=== PATIENT | female | born 1945 | race Caucasian/White ===

== ENCOUNTER 2017-02-08 11:19 | Inpatient (IN) ==
--- NOTE | 2017-02-08 15:44 | Internal Med History&Physical ---
Date of Encounter: 02/08/17 Time of Encounter: 15:42 Assessment and Plan (1) Acute exacerbation of chronic obstructive airways disease Current visit: No Status: Acute Start The patient IV steroids, [id number] nebulizer treatment. (2) Community acquired pneumonia Current visit: No Status: Acute Levofloxacin. Sputum culture. Qualifiers: Laterality: right Lung location: middle lobe of lung Qualified Code(s): J18.1 - Lobar pneumonia, unspecified organism (3) Chest heaviness Current visit: Yes Status: Acute EKG shows T wave inversion in the inferior leave unchanged from previous. Will trend troponin. She has no prior cardiac work-up Internal Medicine - H&P: HPI Chief complaint: sob History of present illness: Ms. Arizmendi is a 71 year old female with history of COPD on 2 L home oxygen, Charcot Mariana tooth, presents to the emergency room with the main component of shortness of breath. For the past 2 weeks patient has been getting progressively short of breath to the point where she short of breath with any minimal activity. She has been having nonproductive cough subjective fevers and chills. Additional sensors or facility from [place] because of concerns of some chest heaviness that she experienced Past Med Surg Social Fam HX - Past Medical History Medical history: arthritis, COPD, dementia, GERD, hypertension, other Psychiatric history: anxiety, depression, other - Social History Smoking Status: Light tobacco smoker Smokeless Tobacco Status: No Alcohol use: none Drug use: none - Family History Mother Living Status: Hx Family Cancer: Yes (Liver) Father Living Status: Hx Family Cancer: Yes (Lung) Internal Medicine - H&P: Meds Acetaminophen [Tylenol] 650 mg PO Q6HR PRN 04/22/16 [History] Carvedilol [Coreg] 25 mg PO BID 04/22/16 [History] HYDROcodone/Acet 5/325 mg [Peterson 5-325 mg] 1 tab PO Q6H PRN 04/22/16 [History] Iron Aspgly,Ps/C/B12/FA/Ca/Suc [Ferrex 150 Forte Plus Capsule] 1 each PO DAILY 04/22/16 [History] Loratadine [Allergy Relief] 10 mg PO DAILY 04/22/16 [History] Melatonin 3 mg PO DAILY 04/22/16 [History] Cholecalciferol (Vitamin D3) [Vitamin D] 2,000 unit PO DAILY 09/09/16 [History] Clopidogrel [Plavix] 75 mg PO DAILY 09/09/16 [History] Pantoprazole Sodium 40 mg PO DAILY 09/09/16 [History] Polyethylene Glycol 3350 [MiraLAX Powder Bulk 17.9 Oz] 17 gm PO DAILY 09/09/16 [ History] Amlodipine Besylate 2.5 mg PO DAILY 01/08/17 [History] Sennosides/Docusate Sodium [Senna Plus] 2 each PO BID 01/08/17 [History] Umeclidinium [place] [Incruse Ellipta] 62.5 mcg IH DAILY 01/08/17 [History] Albuterol Sulfate [Ventolin Hfa] 1 puff IH Q12H PRN 02/08/17 [History] Buspirone HCl [Buspar] 5 mg PO BID 02/08/17 [History] Fluticasone/Vilanterol [Breo Ellipta 100-25 Mcg INH] 1 each IH DAILY 02/08/17 [ History] Gabapentin [Neurontin] 100 mg PO TID 02/08/17 [History] Ipratropium/Albuterol Neb [Duoneb] 3 ml IH TID PRN 02/08/17 [History] Losartan Potassium [Cozaar] 100 mg PO DAILY 02/08/17 [History] Metoclopramide HCl 5 mg PO ACHS 02/08/17 [History] Oxygen 2 l NS CONT 02/08/17 [History] Potassium Chloride [K-Tab ER] 20 meq PO DAILY 02/08/17 [History] Promethazine [Phenergan] 25 mg PO Q6H PRN 02/08/17 [History] Sertraline [Zoloft] 50 mg PO DAILY 02/08/17 [History] Timolol Maleate 0.5% [Timolol Maleate 0.5%] 1 drop BOTH EYES BID 02/08/17 [ History] traZODone [TraZODone] 50 mg PO HS 02/08/17 [History] 3 Allergy/AdvReac Type Severity Reaction Status Date / Time nitroglycerin Allergy Hives Verified 02/08/17 10:09 vancomycin Allergy Rash Verified 01/08/17 20:21 All Systems PM: A 10-system review of systems was performed and is negative for pertinent findings except as documented above in the HPI. Review of systems: 10 point review of systems is negative except for HPI - Constitutional Vitals: Temp Pulse Resp BP Pulse Ox 98.2 F 90 17 117/70 99 02/08/17 15:08 02/08/17 15:08 02/08/17 15:08 02/08/17 15:08 02/08/17 15:08 Exam: Gen.: patient is alert oriented times 3 cardiac: normal S1 S2 no additional sounds or murmurs chest: dimminished air entry, expiratory wheeze, some bronchial breathing in left base abdomen soft nontender nondistended normal bowel sounds lower extremity no swelling. Neuro: no new focal deficits
[2017-02-08] MEDS ORDERED: NON-FORMULARY MEDICATION 1 EACH EACH (Oxygen [Oxygen] 2 L) NS SCH (15:45)
[2017-02-08] MEDS: Ipratropium/Albuterol Neb 3 ML IH SCH ×2 (17:05→21:58)
[2017-02-08] MEDS: MethylPREDNISolone 40 MG/ML VIAL IVP SCH (17:17)
[2017-02-08] MEDS ORDERED: *HR* Heparin 5,000 UNIT/ML VIAL IVP PRN ×2 (19:00)
[2017-02-08] MEDS ORDERED: Heparin 25,000 UNIT/500 ML D5W 25,000 UNIT/500 ML MLS IVC SCH (19:00)
[2017-02-08] MEDS ORDERED: *HR* Heparin 5,000 UNIT/ML VIAL IVP ONE (19:00)
[2017-02-08] MEDS: *HR* Morphine 2 MG/ML SYRINGE IVP PRN (21:36)
[2017-02-08 21:37] LABS: Basophils % 0.1 %; Hematocrit 30.5 % (35.3-44.9); Hemoglobin 9.4 g/dL (11.5-15.4); Immature Granulocytes % 0.6 % (0-4); Lymphocytes # 0.7 K/mcL (0.6-4.6); Mean Corpuscular HGB Conc 30.8 g/dL (31.6-35.5); Mean Corpuscular Hemoglobin 29.7 pg (28.0-33.3); Mean Corpuscular Volume 96.5 fL (83.0-100.0); Mean Platelet Volume 10.6 fL (9.4-12.4); Monocytes # 0.1 K/mcL (0.0-1.3); Monocytes % 1.6 %; Platelet Count 223 K/mcL (140-400); Red Blood Count 3.16 M/mcL (3.82-4.97); Red Cell Distribution Width 13.4 % (11.5-14.5); Segmented Neutrophils % 87.7 %
[2017-02-08] MEDS: Aspirin Enteric Coated 325 MG Tablet PO SCH (21:37)
[2017-02-08] MEDS: Gabapentin 100 MG CAPSULE PO SCH (21:37)
[2017-02-08 21:43] LABS: INR 1.1; Prothrombin Time 11.9 Seconds (9.4-12.1)
[2017-02-08 21:45] LABS: Activated Partial Thrombo Time 30.1 Seconds (26.0-36.0)
[2017-02-08 21:50] LABS: BUN/Creatinine Ratio 13 (6-26); Blood Urea Nitrogen 11 mg/dL (7-20); Calcium 8.9 mg/dL (8.6-10.8); Carbon Dioxide 28 mEq/L (19-29); Chloride 102 mEq/L (98-109); Glucose 152 mg/dL (70-99); Osmolality,Calculated 290 (280-300); Potassium 4.3 mEq/L (3.5-4.5); Sodium 139 mEq/L (136-145); eGFR For African Americans > 60 (> 60); eGFR For Non-African Americans > 60 (> 60)
[2017-02-08] MEDS ORDERED: *HR* Heparin 5,000 UNIT/ML VIAL SQ SCH (22:00)
[2017-02-09] MEDS: Melatonin 3 MG TABLET PO SCH ×2 (01:44→21:37)
[2017-02-09] MEDS: MethylPREDNISolone 40 MG/ML VIAL IVP SCH ×3 (01:44→16:10)
[2017-02-09] MEDS: *HR* Morphine 2 MG/ML SYRINGE IVP PRN (01:44)
[2017-02-09] MEDS: Ipratropium/Albuterol Neb 3 ML IH SCH ×4 (03:48→22:24)
[2017-02-09 03:53] LABS: Basophils % 0.1 %; Hematocrit 27.2 % (35.3-44.9); Hemoglobin 8.5 g/dL (11.5-15.4); Immature Granulocytes % 0.7 % (0-4); Lymphocytes % 14.2 %; Mean Corpuscular HGB Conc 31.3 g/dL (31.6-35.5); Mean Corpuscular Hemoglobin 29.7 pg (28.0-33.3); Mean Corpuscular Volume 95.1 fL (83.0-100.0); Mean Platelet Volume 10.6 fL (9.4-12.4); Monocytes # 0.2 K/mcL (0.0-1.3); Monocytes % 3.4 %; Neutrophils # 5.7 K/mcL (1.6-8.9); Platelet Count 189 K/mcL (140-400); Red Blood Count 2.86 M/mcL (3.82-4.97); Red Cell Distribution Width 13.2 % (11.5-14.5); Segmented Neutrophils % 81.6 %
[2017-02-09 04:02] LABS: BUN/Creatinine Ratio 16 (6-26); Blood Urea Nitrogen 11 mg/dL (7-20); Calcium 8.6 mg/dL (8.6-10.8); Carbon Dioxide 27 mEq/L (19-29); Chloride 101 mEq/L (98-109); Glucose 152 mg/dL (70-99); Magnesium 1.6 mg/dL (1.6-2.6); Osmolality,Calculated 286 (280-300); Sodium 137 mEq/L (136-145); eGFR For African Americans > 60 (> 60); eGFR For Non-African Americans > 60 (> 60)
[2017-02-09 04:31] LABS: Activated Partial Thrombo Time 166.9 Seconds (26.0-36.0)
[2017-02-09 04:40] LABS: Heparin anti-factor XA UFH 0.99 IU/mL (0.30-0.70)
[2017-02-09] MEDS: Gabapentin 100 MG CAPSULE PO SCH ×3 (08:25→21:38)
[2017-02-09] MEDS: Aspirin Enteric Coated 325 MG Tablet PO SCH (08:25)
[2017-02-09] MEDS: Levofloxacin 750 MG/150 ML 750 MG/150 ML BAG IVPB SCH (08:29)
[2017-02-09] MEDS ORDERED: (Fluticasone/Vilanterol [Breo Ellipta 100-25 Mcg Inh] IH SCH (09:00)
--- NOTE | 2017-02-09 09:51 | Internal Med Progress Note ---
Date of Encounter: 02/09/17 Time of Encounter: 09:49 - Assessment and plan (1) Acute exacerbation of chronic obstructive airways disease Current Visit: Yes Status: Acute Assessment and plan: Improving. Chest x-ray shows small right-sided infiltrate. Continue empiric antibiotics, taper down IV steroids as tolerated. Schedule bronchodilators and supplemental oxygen, wean down FiO2 as tolerated. (2) Elevated troponin Current Visit: Yes Status: Acute Assessment and plan: Could be related to demand ischemia and underlying hypoxemia. To rule out ACS. Continue to trend troponins, telemetry monitoring. Started on anticoagulation with IV heparin drip. Continue aspirin, Plavix, beta dia and statin. Follow-up cardiology consult. (3) Acute on chronic respiratory failure with hypoxia Current Visit: Yes Status: Acute Assessment and plan: Due to underlying COPD. Plan as above. (4) Pneumonia Current Visit: Yes Status: Acute Assessment and plan: Chest x-ray shows right lung infiltrate. Continue IV Levaquin. Follow-up blood cultures. Supportive care and supplemental oxygen. Qualifiers: Pneumonia type: due to unspecified organism Laterality: right Lung location: middle lobe of lung Qualified Code(s): J18.1 - Lobar pneumonia, unspecified organism (5) Tobacco abuse Current Visit: Yes Status: Chronic Assessment and plan: Continue nicotine transdermal patch as needed. (6) Charcot-Mariana disease Current Visit: Yes Status: Acute Assessment and plan: Status post bilateral below knee amputation. Supportive care. - Subjective Interval history: Feels better; reports panic attacks and feeling hot; improving shortness of breath and chest pain; - Constitutional Vitals: Temp Pulse Resp BP Pulse Ox 97.6 F 70 18 150/71 93 02/09/17 07:22 02/09/17 07:22 02/09/17 07:22 02/09/17 07:22 02/09/17 07:22 General appearance: Present: A&O X 3, answers questions appropriately - Respiratory Respiratory exam: Present: decreased breath sounds (B/L decreased air entry), CTAB. Absent: accessory muscle use, rales, rhonchi, wheezes - Cardiovascular Cardiovascular exam: Present: RRR, +S1, +S2. Absent: diastolic murmur, gallop, rubs, systolic murmur - GI/Abdominal GI/Abdominal exam: Present: normal bowel sounds, soft (mild epigastric tenderness), no peritoneal signs. Absent: distended, tenderness - Extremities Exam Extremities exam: Present: full ROM (B/L BKA), warm, radial pulses palpable and symmetrical. Absent: calf tenderness, cyanotic, pedal edema - Neurological Exam Neurological exam: Present: CN II-XII intact, oriented X3, no focal deficits. Absent: pronater drift, facial droop, speech deficit - Skin Skin exam: Present: dry, intact Internal Medicine: Result - Labs CBC & Chem 7: 02/09/17 03:43 02/09/17 03:43 Labs: Short CBC 02/08/17 02/09/17 Range/Units 21:25 03:43 WBC 6.8 7.0 (4.3-11.1) K/mcL Hgb 9.4 L 8.5 L (11.5-15.4) g/dL Hct 30.5 L 27.2 L (35.3-44.9) % Plt Count 223 189 (140-400) K/mcL Neutrophils # 6.0 5.7 (1.6-8.9) K/mcL BMP 02/08/17 02/09/17 21:25 03:43 Sodium 139 137 Potassium 4.3 4.0 Chloride 102 101 Carbon Dioxide 28 27 BUN 11 11 Creatinine 0.83 0.67 Glucose 152 H 152 H Calcium 8.9 8.6 Cardiac Enzymes 02/08/17 02/08/17 02/08/17 Range/Units 16:12 21:25 23:09 Troponin I 0.18 H* 0.13 H* 0.14 H* (0-0.03) ng/mL - ABG Interpretation ABG results: PT/INR, D-dimer PT 11.9 Seconds (9.4-12.1) 02/08/17 21:25 Consult Discharge Plan - Plan Referrals: Brionna Campbell MD [Primary Care Provider] -
[2017-02-09] MEDS: ALPRAZolam 0.25 MG TABLET PO PRN ×2 (09:57→21:50)
--- NOTE | 2017-02-09 10:38 | Cardiology Consult Note ---
Date of Encounter: 02/09/17 Time of Encounter: 09:00 Assessment and Plan (1) Elevated troponin Current Visit: Yes Status: Acute Troponin elevation up to 0.18. Likely demand ischemia in the setting of PNA and COPD exaerbation. She does describe typical chest pain symptoms. Cardiac risk factors include heavy tobacco use, HTN, HLD. Agree with heparin gtt. Check TTE Continue asa and plavix. Patient unsure why she is on plavix. [facility] she is on [facility] for CAD. Patient denies history of this. Further recommendations to follow. Noted to have chronic anemia. Recommend work-up for anemia if no previous evaluation to prepare for possible LHC On heparin gtt. No signs of bleeding. Agree to continue for now. Check stool occult for further evaluation. Discussion w patient/family: The assessment and plan as outlined above was discussed with the patient and/or family members who expressed understanding and agreement. All questions were answered. Thank you for involving us in the care of your patient. Please call with any questions. History of Present Illness Consult date: 02/09/17 Requesting physician: Reese Gomez Consult reason: Elevated troponin Chief complaint: SOB, Chest tightness History of present illness: Ms. Arizmendi is a 71 year old female with a history of COPD on home O2, Charcot Mariana tooth, s/p bilateral LE amputation, tobacco abuse, HTN, and HLD who presented with SOB and chest tightness for 3-4 weeks. She presented from her permanent residence at a rehab facility. She c/o constant mid epigastric to mid sternal chest tightness that increases with stress and minimal activity. She occasionally has pain in her jaws and left neck. Reports frequent COPD exacerbations and reports her chest tightness is a new symptom. Cardiology consulted for elevated troponin up to 0.18. She denies previous cardiac history or cardiac work-up. Past Med Surg Social Fam HX - Past Medical History Attestation: Yes The following information was validated with the patient. Medical history: arthritis, COPD, dementia, GERD, hyperlipidemia, hypertension, other Psychiatric history: anxiety, depression, other - Social History Smoking Status: Light tobacco smoker (, heavy smoker for many years) Smokeless Tobacco Status: No Alcohol use: none Drug use: none - Family History Mother Living Status: Hx Family Cancer: Yes (Liver) Father Living Status: Hx Family Cancer: Yes (Lung) Medications and Allergies Acetaminophen [Tylenol] 650 mg PO Q6HR PRN 04/22/16 [History] Carvedilol [Coreg] 25 mg PO BID 04/22/16 [History] HYDROcodone/Acet 5/325 mg [Aspen 5-325 mg] 1 tab PO Q6H PRN 04/22/16 [History] Iron Aspgly,Ps/C/B12/FA/Ca/Suc [Ferrex 150 Forte Plus Capsule] 1 each PO DAILY 04/22/16 [History] Loratadine [Allergy Relief] 10 mg PO DAILY 04/22/16 [History] Melatonin 3 mg PO DAILY 04/22/16 [History] Cholecalciferol (Vitamin D3) [Vitamin D] 2,000 unit PO DAILY 09/09/16 [History] Clopidogrel [Plavix] 75 mg PO DAILY 09/09/16 [History] Pantoprazole Sodium 40 mg PO DAILY 09/09/16 [History] Polyethylene Glycol 3350 [MiraLAX Powder Bulk 17.9 Oz] 17 gm PO DAILY 09/09/16 [ History] Amlodipine Besylate 2.5 mg PO DAILY 01/08/17 [History] Sennosides/Docusate Sodium [Senna Plus] 2 each PO BID 01/08/17 [History] Umeclidinium [place] [Incruse Ellipta] 62.5 mcg IH DAILY 01/08/17 [History] Albuterol Sulfate [Ventolin Hfa] 1 puff IH Q12H PRN 02/08/17 [History] Buspirone HCl [Buspar] 5 mg PO BID 02/08/17 [History] Fluticasone/Vilanterol [Breo Ellipta 100-25 Mcg INH] 1 each IH DAILY 02/08/17 [ History] Gabapentin [Neurontin] 100 mg PO TID 02/08/17 [History] Ipratropium/Albuterol Neb [Duoneb] 3 ml IH TID PRN 02/08/17 [History] Losartan Potassium [Cozaar] 100 mg PO DAILY 02/08/17 [History] Metoclopramide HCl 5 mg PO ACHS 02/08/17 [History] Oxygen 2 l NS CONT 02/08/17 [History] Potassium Chloride [K-Tab ER] 20 meq PO DAILY 02/08/17 [History] Promethazine [Phenergan] 25 mg PO Q6H PRN 02/08/17 [History] Sertraline [Zoloft] 50 mg PO DAILY 02/08/17 [History] Timolol Maleate 0.5% [Timolol Maleate 0.5%] 1 drop BOTH EYES BID 02/08/17 [ History] traZODone [TraZODone] 50 mg PO HS 02/08/17 [History] 3 Allergy/AdvReac Type Severity Reaction Status Date / Time nitroglycerin Allergy Hives Verified 02/08/17 10:09 vancomycin Allergy Rash Verified 01/08/17 20:21 All Systems Review: A 10-system review of systems was performed and is negative for pertinent findings except as documented above in the HPI. Physical Examination Vital Signs, Last 4 Hours Temp Pulse Resp BP Pulse Ox 02/09/17 07:22 97.6 F 70 18 150/71 93 General: Conversant, No Apparent Distress HEENT: Atraumatic, Normocephaly, Mucus Membranes Moist Neck: No JVD, Normal carotid pulses Cardiac: Reg Rate and Rhythm, Normal S1 and S2, No Murmur Lungs: Normal Breath Sounds, No Wheeze, Rales, Rhonchi, Other (diminished throughout. ) Neuro: Alert and responsive, No focal deficits noted Abdomen: Soft, Non-Tender Skin: No rashes noted on visualized skin Musculoskeletal: No Chest Wall Tenderness Extremities: No Edema, Other (Bilateral AKA) Results 02/09/17 03:43 02/09/17 03:43 Lab Results 02/08/17 02/08/17 02/08/17 16:12 21:25 21:25 WBC 6.8 Hgb 9.4 L Hct 30.5 L Plt Count 223 INR 1.1 APTT 30.1 Sodium Potassium Chloride Carbon Dioxide BUN Creatinine Glucose Calcium Magnesium Troponin I 0.18 H* 02/08/17 02/08/17 02/08/17 21:25 21:25 23:09 WBC Hgb Hct Plt Count INR APTT Sodium 139 Potassium 4.3 Chloride 102 Carbon Dioxide 28 BUN 11 Creatinine 0.83 Glucose 152 H Calcium 8.9 Magnesium Troponin I 0.13 H* 0.14 H* 02/09/17 02/09/17 02/09/17 03:43 03:43 03:43 WBC 7.0 Hgb 8.5 L Hct 27.2 L Plt Count 189 INR APTT 166.9 H* D Sodium 137 Potassium 4.0 Chloride 101 Carbon Dioxide 27 BUN 11 Creatinine 0.67 Glucose 152 H Calcium 8.6 Magnesium 1.6 Troponin I - Imaging and Cardiology Echo: pending - EKG Interpretation EKG results cardiology: personally reviewed (EKG NSR to sinus arrhythmia. Previous inferior PA.) Consult Discharge Plan - Plan Referrals: Brionna Campbell MD [Primary Care Provider] -
[2017-02-09] MEDS: *HR* HYDROcodone/Acet 5/325 mg TABLET PO PRN ×2 (14:05→21:37)
[2017-02-10] MEDS: MethylPREDNISolone 40 MG/ML VIAL IVP SCH ×3 (02:13→16:18)
[2017-02-10] MEDS: Ipratropium/Albuterol Neb 3 ML IH SCH ×4 (04:37→21:04)
[2017-02-10] MEDS: *HR* HYDROcodone/Acet 5/325 mg TABLET PO PRN ×2 (06:30→16:23)
[2017-02-10 06:57] LABS: Basophils % 0.1 %; Hemoglobin 8.8 g/dL (11.5-15.4); Immature Granulocytes % 0.9 % (0-4); Lymphocytes # 1.1 K/mcL (0.6-4.6); Lymphocytes % 10.7 %; Mean Corpuscular HGB Conc 31.4 g/dL (31.6-35.5); Mean Corpuscular Hemoglobin 29.4 pg (28.0-33.3); Mean Corpuscular Volume 93.6 fL (83.0-100.0); Monocytes # 0.5 K/mcL (0.0-1.3); Monocytes % 4.8 %; Platelet Count 207 K/mcL (140-400); Red Blood Count 2.99 M/mcL (3.82-4.97); Red Cell Distribution Width 13.6 % (11.5-14.5); Segmented Neutrophils % 83.5 %
[2017-02-10 07:06] LABS: BUN/Creatinine Ratio 17 (6-26); Blood Urea Nitrogen 12 mg/dL (7-20); Calcium 8.7 mg/dL (8.6-10.8); Carbon Dioxide 28 mEq/L (19-29); Chloride 104 mEq/L (98-109); Glucose 156 mg/dL (70-99); Osmolality,Calculated 297 (280-300); Sodium 142 mEq/L (136-145); eGFR For African Americans > 60 (> 60); eGFR For Non-African Americans > 60 (> 60)
[2017-02-10] MEDS: Levofloxacin 750 MG/150 ML 750 MG/150 ML BAG IVPB SCH (07:57)
[2017-02-10] MEDS: Gabapentin 100 MG CAPSULE PO SCH ×3 (07:57→21:19)
[2017-02-10] MEDS: Aspirin Enteric Coated 81 MG Tablet PO SCH (07:57)
[2017-02-10 07:59] LABS: Neutrophils # 8.9 K/mcL (1.6-8.9)
[2017-02-10] MEDS: ALPRAZolam 0.25 MG TABLET PO PRN ×2 (08:07→16:23)
--- NOTE | 2017-02-10 08:36 | Cardiology Progress Note ---
Date of Encounter: 02/10/17 Time of Encounter: 08:00 Assessment and Plan (1) Elevated troponin Current Visit: Yes Status: Acute Troponin elevation up to 0.18. Likely demand ischemia in the setting of PNA and COPD exaerbation. She does describe typical chest pain symptoms. Cardiac risk factors include heavy tobacco use, HTN, HLD. TTE shows preserved EF and no significant valvular disease. Okay to d/c heparin GTT. Discussed with Dr. South, recommend stress test for further evaluation of chest pain. Continue asa and plavix. Patient unsure why she is on plavix. [facility] report says she is on it for CAD. Patient denies history of this. Further recommendations to follow. Discussion w patient/family: The assessment and plan as outlined above was discussed with the patient and/or family members who expressed understanding and agreement. All questions were answered. Thank you for involving us in the care of your patient. Please call with any questions. Subjective Principal diagnosis: Chest pain Interval history: Denies chest pain this morning. Reports she is breathing better. Objective Vital Signs, Last 4 Hours Temp Pulse Resp BP Pulse Ox 02/10/17 07:49 97.6 F 69 18 135/72 92 02/10/17 04:37 16 100 General: Conversant, No Apparent Distress HEENT: Atraumatic, Normocephaly, Mucus Membranes Moist Neck: No JVD, Normal carotid pulses Cardiac: Reg Rate and Rhythm, Normal S1 and S2, No Murmur Lungs: Normal Breath Sounds, No Wheeze, Rales, Rhonchi, Other (Diminished due to auscultation. ) Neuro: Alert and responsive, No focal deficits noted Abdomen: Soft, Non-Tender Skin: No rashes noted on visualized skin Musculoskeletal: No Chest Wall Tenderness Extremities: No Clubbing, No Cyanosis, No Edema, Normal Pulses, Other ( Bilateral AKA) Results 02/10/17 06:44 02/10/17 06:44 Lab Results 02/09/17 02/09/17 02/10/17 11:41 17:46 06:44 WBC 10.6 D Hgb 8.8 L Hct 28.0 L Plt Count 207 APTT 68.8 H D 65.0 H Sodium Potassium Chloride Carbon Dioxide BUN Creatinine Glucose Calcium Troponin I 02/10/17 02/10/17 06:44 06:44 WBC Hgb Hct Plt Count APTT Sodium 142 Potassium 4.0 Chloride 104 Carbon Dioxide 28 BUN 12 Creatinine 0.70 Glucose 156 H Calcium 8.7 Troponin I 0.03 - Imaging and Cardiology Echo: report reviewed - EKG Interpretation EKG results cardiology: personally reviewed Consult Discharge Plan - Plan Referrals: Brionna Campbell MD [Primary Care Provider] -
[2017-02-10] MEDS ORDERED: Regadenoson 0.4 MG/5 ML SYRINGE IVP ONE (09:05)
--- NOTE | 2017-02-10 16:02 | Internal Med Progress Note ---
Date of Encounter: 02/10/17 Time of Encounter: 15:30 - Assessment and plan (1) Acute exacerbation of chronic obstructive airways disease Current Visit: Yes Status: Acute Assessment and plan: Acute exacerbation of COPD - now Improving. Chest x-ray shows small right-sided infiltrate Continue empiric antibiotics, taper down IV steroids as tolerated. Schedule bronchodilators and supplemental oxygen, wean down FiO2 as tolerated Cardiac telemetry, anticipate discharge in a.m. (2) Elevated troponin Current Visit: Yes Status: Acute Assessment and plan: ACS ruled out Continue Aspirin, Plavix, beta dia and statin Cardiology consult - recommendations reviewed Stress test - negative for ischemia or infarct LVEF - 60-65%, no valvular dysfunction (3) Pneumonia Current Visit: Yes Status: Acute Assessment and plan: Chest x-ray shows right lung infiltrate. Continue IV Levaquin. Follow-up blood cultures. Supportive care and supplemental oxygen Qualifiers: Pneumonia type: due to unspecified organism Laterality: right Lung location: middle lobe of lung Qualified Code(s): J18.1 - Lobar pneumonia, unspecified organism (4) Acute on chronic respiratory failure with hypoxia Current Visit: Yes Status: Acute Assessment and plan: Acute on chronic hypoxic respiratory failure secondary to acute exacerbation of COPD Plan as above (5) Tobacco abuse Current Visit: Yes Status: Chronic Assessment and plan: Counseled about cessation, Continue nicotine transdermal patch (6) Chronic anxiety Current Visit: Yes Status: Chronic Assessment and plan: Chronic generalized anxiety with probable depression, stable Continue home dose of BuSpar, Xanax as needed (7) DVT prophylaxis Current Visit: Yes Status: Acute Assessment and plan: Continue heparin subcutaneous - Time Spent With Patient 25 - 35 minutes - Subjective Interval history: Examined this afternoon. Patient is awake and alert. Not in any distress. Denies chest pain. States her shortness of breath has improved. Tolerating oral diet well. Hemodynamically stable. No fever. Complains of mild shortness of breath on exertion. No other acute events or complaints. Admitted for acute exacerbation of COPD. She also has elevated troponin. Stress test done today, negative for ischemia or infarct. LVEF 60-65% with mild LV diastolic dysfunction. - Constitutional Vitals: Temp Pulse Resp BP Pulse Ox 98.0 F 76 16 131/65 94 02/10/17 15:29 02/10/17 15:29 02/10/17 15:29 02/10/17 15:29 02/10/17 15:29 General appearance: Present: cooperative, A&O X 3, pleasant, no acute distress, answers questions appropriately - Head Head exam: Present: atraumatic - Eye Eye exam: Present: EOMI - ENT ENT exam: Present: mucous membranes moist - Respiratory Respiratory exam: Present: wheezes (Mild bibasilar, otherwise clear to auscultation). Absent: accessory muscle use, rales, rhonchi, tachypnea - Cardiovascular Cardiovascular exam: Present: RRR, +S1, +S2 - GI/Abdominal GI/Abdominal exam: Present: soft. Absent: distended, firm, guarding, tenderness - Extremities Exam Extremities exam: Present: radial pulses palpable and symmetrical. Absent: calf tenderness, cyanotic Additional comments: Bilateral below-knee amputation - Neurological Exam Neurological exam: Present: alert, oriented X3, no focal deficits. Absent: facial droop, speech deficit Internal Medicine: Result - Labs CBC & Chem 7: 02/10/17 06:44 02/10/17 06:44 Labs: Short CBC 02/10/17 Range/Units 06:44 WBC 10.6 D (4.3-11.1) K/mcL Hgb 8.8 L (11.5-15.4) g/dL Hct 28.0 L (35.3-44.9) % Plt Count 207 (140-400) K/mcL Neutrophils # 8.9 (1.6-8.9) K/mcL BMP 02/10/17 06:44 Sodium 142 Potassium 4.0 Chloride 104 Carbon Dioxide 28 BUN 12 Creatinine 0.70 Glucose 156 H Calcium 8.7 Cardiac Enzymes 02/10/17 Range/Units 06:44 Troponin I 0.03 (0-0.03) ng/mL - ABG Interpretation ABG results: PT/INR, D-dimer PT 11.9 Seconds (9.4-12.1) 02/08/17 21:25 Consult Discharge Plan - Plan Referrals: Brionna Campbell MD [Primary Care Provider] -
[2017-02-10] MEDS: Nicotine 14 MG PATCH.TD24 TD SCH (16:17)
[2017-02-10] MEDS: *HR* Heparin 5,000 UNIT/ML VIAL SQ SCH (17:09)
[2017-02-10] MEDS: Melatonin 3 MG TABLET PO SCH (21:19)
[2017-02-10] MEDS: Famotidine 20 MG TABLET PO SCH (21:19)
[2017-02-11] MEDS: MethylPREDNISolone 40 MG/ML VIAL IVP SCH ×2 (00:25→09:38)
[2017-02-11] MEDS: Ipratropium/Albuterol Neb 3 ML IH SCH ×4 (03:21→21:03)
[2017-02-11] MEDS: *HR* HYDROcodone/Acet 5/325 mg TABLET PO PRN ×2 (03:42→19:01)
[2017-02-11] MEDS: ALPRAZolam 0.25 MG TABLET PO PRN ×2 (03:46→15:42)
[2017-02-11] MEDS: *HR* Heparin 5,000 UNIT/ML VIAL SQ SCH ×2 (05:45→18:53)
--- NOTE | 2017-02-11 05:55 | Electrocardiograph Report ---
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
[2017-02-11] MEDS: Gabapentin 100 MG CAPSULE PO SCH ×3 (09:38→20:28)
[2017-02-11] MEDS: Nicotine 14 MG PATCH.TD24 TD SCH (09:38)
[2017-02-11] MEDS: levoFLOXacin 750 MG TABLET PO SCH (09:38)
[2017-02-11] MEDS: Aspirin Enteric Coated 81 MG Tablet PO SCH (09:38)
[2017-02-11] MEDS: Famotidine 20 MG TABLET PO SCH (09:38)
--- NOTE | 2017-02-11 14:57 | Internal Med Progress Note ---
Date of Encounter: 02/11/17 Time of Encounter: 10:20 - Assessment and plan (1) Acute exacerbation of chronic obstructive airways disease Current Visit: Yes Status: Acute Assessment and plan: Acute exacerbation of COPD - now improved Chest x-ray - small right-sided infiltrate Continue empiric IV Levaquin, taper down IV steroids as tolerated Schedule bronchodilators and supplemental oxygen, wean down FiO2 as tolerated Cardiac telemetry, anticipate discharge to ECF in a.m. (2) Elevated troponin Current Visit: Yes Status: Acute Assessment and plan: ACS ruled out Continue Aspirin, Plavix, Coreg, Lipitor Cardiology consult - recommendations reviewed Stress test - negative for ischemia or infarct LVEF - 60-65%, no valvular dysfunction (3) Pneumonia Current Visit: Yes Status: Acute Assessment and plan: Probable right lower lobe community-acquired pneumonia, likely bacterial, present on admission Chest x-ray - right lung infiltrate Continue IV Levaquin, DuoNeb breathing treatment Follow-up on cultures, Supportive care and supplemental oxygen Qualifiers: Pneumonia type: due to unspecified organism Laterality: right Lung location: middle lobe of lung Qualified Code(s): J18.1 - Lobar pneumonia, unspecified organism (4) Acute on chronic respiratory failure with hypoxia Current Visit: Yes Status: Acute Assessment and plan: Acute on chronic hypoxic respiratory failure secondary to acute exacerbation of COPD and pneumonia Plan as above (5) Tobacco abuse Current Visit: Yes Status: Chronic Assessment and plan: Counseled about cessation Continue nicotine transdermal patch (6) Chronic anxiety Current Visit: Yes Status: Chronic Assessment and plan: Chronic generalized anxiety with probable depression, stable Continue home dose of BuSpar, Xanax PRN (7) DVT prophylaxis Current Visit: Yes Status: Acute Assessment and plan: Continue Heparin subcutaneous - Time Spent With Patient 25 - 35 minutes - Subjective Interval history: Examined this morning. Patient is awake and alert. Not in any distress. Denies chest pain. States her shortness of breath has improved. Tolerating oral diet well. Hemodynamically stable. No fever. Complains of mild shortness of breath on exertion. No other acute events or complaints. Anticipate discharge to ECF tomorrow. Admitted for acute exacerbation of COPD. She also has elevated troponin. Stress test done, negative for ischemia or infarct. LVEF 60-65% with mild LV diastolic dysfunction. - Constitutional Vitals: Temp Pulse Resp BP Pulse Ox 98.1 F 73 18 147/85 98 02/11/17 11:06 02/11/17 11:06 02/11/17 11:06 02/11/17 11:06 02/11/17 11:06 General appearance: Present: cooperative, A&O X 3, pleasant, no acute distress, answers questions appropriately - Head Head exam: Present: atraumatic - Eye Eye exam: Present: EOMI - ENT ENT exam: Present: mucous membranes moist - Respiratory Respiratory exam: Present: wheezes (Minimal bibasilar, otherwise clear to auscultation). Absent: accessory muscle use, chest wall tenderness, rales, rhonchi, tachypnea - Cardiovascular Cardiovascular exam: Present: RRR, +S1, +S2 - GI/Abdominal GI/Abdominal exam: Present: soft. Absent: distended, firm, guarding, tenderness - Extremities Exam Extremities exam: Present: radial pulses palpable and symmetrical. Absent: calf tenderness, cyanotic Additional comments: Bilateral below-knee amputation - Neurological Exam Neurological exam: Present: alert, oriented X3, no focal deficits. Absent: facial droop, speech deficit Internal Medicine: Result - Labs CBC & Chem 7: 02/10/17 06:44 02/10/17 06:44 - ABG Interpretation ABG results: PT/INR, D-dimer PT 11.9 Seconds (9.4-12.1) 02/08/17 21:25 Consult Discharge Plan - Plan Referrals: Brionna Campbell MD [Primary Care Provider] -
[2017-02-11 17:53] LABS: CK-MB (CK isoenzymes) 0 % (0-4); CK-MM (CK-isoenzymes) 100 % (96-100)
[2017-02-11 17:53] LABS: CK-MB (CK isoenzymes) 0 % (0-4); CK-MM (CK-isoenzymes) 100 % (96-100)
[2017-02-11] MEDS: predniSONE 20 MG TABLET PO SCH (18:53)
[2017-02-11] MEDS: Melatonin 3 MG TABLET PO SCH (20:28)
[2017-02-12] MEDS: ALPRAZolam 0.25 MG TABLET PO PRN ×2 (01:39→11:53)
[2017-02-12] MEDS: Ipratropium/Albuterol Neb 3 ML IH SCH ×2 (04:12→11:19)
[2017-02-12] MEDS: *HR* Heparin 5,000 UNIT/ML VIAL SQ SCH (06:24)
[2017-02-12 07:14] LABS: CK Total (Ck Isoenzymes) 42 U/L (20-180); CK-BB (CK isoenzymes) 0 % (0-0)
[2017-02-12 07:14] LABS: CK Total (Ck Isoenzymes) 45 U/L (20-180); CK-BB (CK isoenzymes) 0 % (0-0)
[2017-02-12] MEDS: predniSONE 20 MG TABLET PO SCH (09:47)
[2017-02-12] MEDS: Nicotine 14 MG PATCH.TD24 TD SCH (09:47)
[2017-02-12] MEDS: Gabapentin 100 MG CAPSULE PO SCH (09:47)
[2017-02-12] MEDS: Aspirin Enteric Coated 81 MG Tablet PO SCH (09:47)
[2017-02-12] MEDS: levoFLOXacin 750 MG TABLET PO SCH (09:48)
[2017-02-12] MEDS: *HR* HYDROcodone/Acet 5/325 mg TABLET PO PRN (09:53)
--- NOTE | 2017-02-12 10:27 | Discharge Summary ---
Date of Encounter: 02/12/17 Time of Encounter: 09:20 - Discharge Diagnosis (1) Acute exacerbation of chronic obstructive airways disease Priority: Primary Status: Acute Comments: Acute exacerbation of COPD - now improved Chest x-ray - small right-sided infiltrate Continue empiric PO Levaquin, tapering dose of steroids Continue DuoNeb breathing treatment, continue O2 via [place] Discharge to ECF today Return if symptoms worsen, follow up with primary care physician (2) Elevated troponin Priority: Primary Status: Acute Comments: ACS ruled out Continue Aspirin, Plavix, Coreg, Lipitor Cardiology consult - recommendations reviewed Stress test - negative for ischemia or infarct LVEF - 60-65%, no valvular dysfunction (3) Pneumonia Priority: Primary Status: Acute Comments: Probable right lower lobe community-acquired pneumonia, likely bacterial, present on admission - symptoms now improved Chest x-ray - right lung infiltrate Continue PO Levaquin, DuoNeb breathing treatment Follow-up on cultures, Supportive care and supplemental O2 via [place] Qualifiers: Pneumonia type: due to unspecified organism Laterality: right Lung location: middle lobe of lung Qualified Code(s): J18.1 - Lobar pneumonia, unspecified organism (4) Acute on chronic respiratory failure with hypoxia Priority: Primary Status: Acute Comments: Acute on chronic hypoxic respiratory failure secondary to acute exacerbation of COPD and pneumonia Plan as above (5) Tobacco abuse Priority: Secondary Status: Chronic Comments: Counseled about cessation Continue nicotine transdermal patch (6) Chronic anxiety Priority: Secondary Status: Chronic Comments: Chronic generalized anxiety with probable depression, stable Continue home dose of BuSpar, Xanax PRN - Discharge Medications Prescriptions: Ipratropium/Albuterol Neb [Duoneb] 3 ml IH Q6HR PRN #30 inhsol PRN Reason: Shortness Of Breath ALPRAZolam [Xanax 0.5 MG Tablet] 0.5 mg PO BID PRN #7 tablet PRN Reason: Anxiety Aspirin Enteric Coated [Aspirin EC] 81 mg PO DAILY #30 tablet. Atorvastatin [Lipitor] 40 mg PO HS #30 tablet Buspirone HCl [Buspar] 5 mg PO BID #30 tablet Gabapentin [Neurontin] 100 mg PO TID #20 capsule HYDROcodone/Acet 5/325 mg [[place] 5-325 mg] 1 tab PO Q6H PRN #7 tablet PRN Reason: Pain levoFLOXacin [Levaquin] 750 mg PO Q24H 5 Days #5 tablet Melatonin 3 mg PO DAILY #10 tablet Nicotine Patch [Nicoderm] 14 mg TD DAILY #30 patch.td24 predniSONE [PredniSONE] 20 mg PO DAILY #14 tablet traZODone [TraZODone] 50 mg PO HS #30 tablet Home Medications: Acetaminophen [Tylenol] 650 mg PO Q6HR PRN 04/22/16 [History] Carvedilol [Coreg] 25 mg PO BID 04/22/16 [History] Iron Aspgly,Ps/C/B12/FA/Ca/Suc [Ferrex 150 Forte Plus Capsule] 1 each PO DAILY 04/22/16 [History] Loratadine [Allergy Relief] 10 mg PO DAILY 04/22/16 [History] Cholecalciferol (Vitamin D3) [Vitamin D3] 2,000 unit PO DAILY 09/09/16 [History] Clopidogrel [Plavix] 75 mg PO DAILY 09/09/16 [History] Pantoprazole Sodium 40 mg PO DAILY 09/09/16 [History] Polyethylene Glycol 3350 [MiraLAX Powder Bulk 17.9 Oz] 17 gm PO DAILY 09/09/16 [ History] Amlodipine Besylate 2.5 mg PO DAILY 01/08/17 [History] Sennosides/Docusate Sodium [Senna Plus] 2 each PO BID 01/08/17 [History] Umeclidinium [place] [Incruse Ellipta] 62.5 mcg IH DAILY 01/08/17 [History] Albuterol Sulfate [Ventolin Hfa] 1 puff IH Q12H PRN 02/08/17 [History] Fluticasone/Vilanterol [Breo Ellipta 100-25 Mcg INH] 1 each IH DAILY 02/08/17 [ History] Losartan Potassium [Cozaar] 100 mg PO DAILY 02/08/17 [History] Metoclopramide HCl 5 mg PO ACHS 02/08/17 [History] Oxygen 2 l NS CONT 02/08/17 [History] Potassium Chloride [K-Tab ER] 20 meq PO DAILY 02/08/17 [History] Promethazine [Phenergan] 25 mg PO Q6H PRN 02/08/17 [History] Sertraline [Zoloft] 50 mg PO DAILY 02/08/17 [History] Timolol Maleate 0.5% 1 drop BOTH EYES BID 02/08/17 [History] ALPRAZolam [Xanax 0.5 MG Tablet] 0.5 mg PO BID PRN #7 tablet 02/12/17 [Rx] Aspirin Enteric Coated [Aspirin EC] 81 mg PO DAILY #30 tablet. 02/12/17 [Rx] Atorvastatin [Lipitor] 40 mg PO HS #30 tablet 02/12/17 [Rx] Buspirone HCl [Buspar] 5 mg PO BID #30 tablet 02/12/17 [Rx] Gabapentin [Neurontin] 100 mg PO TID #20 capsule 02/12/17 [Rx] HYDROcodone/Acet 5/325 mg [[place] 5-325 mg] 1 tab PO Q6H PRN #7 tablet 02/12/17 [ Rx] Ipratropium/Albuterol Neb [Duoneb] 3 ml IH Q6HR PRN #30 inhsol 02/12/17 [Rx] Melatonin 3 mg PO DAILY #10 tablet 02/12/17 [Rx] Nicotine Patch [Nicoderm] 14 mg TD DAILY #30 patch.td24 02/12/17 [Rx] levoFLOXacin [Levaquin] 750 mg PO Q24H 5 Days #5 tablet 02/12/17 [Rx] predniSONE [PredniSONE] 20 mg PO DAILY #14 tablet 02/12/17 [Rx] traZODone [TraZODone] 50 mg PO HS #30 tablet 02/12/17 [Rx] Allergies/Adverse Reactions: 3 Allergy/AdvReac Type Severity Reaction Status Date / Time nitroglycerin Allergy Hives Verified 02/08/17 10:09 vancomycin Allergy Rash Verified 01/08/17 20:21 Procedures/tests Complete & Pending: Procedures Performed prior 72 hours Category Date Time Status NM marcelle perf SPECT multi [NM] Routine Exams 02/10/17 08:30 Taken EV echocardiogram Routine Y 02/09/17 19:57 Completed SP pharm nuclear stress Routine Y 02/10/17 08:29 Completed Date of admission: 02/10/17 16:09 Primary care physician: Brionna Campbell Consults: 02/08/17 13:49 Consult to Nutrition [CONS] Routine Comment: Consulting Provider: NUTRITION Reason for Dietary Consult: MST Score Consult to Pastoral Services [CONS] Routine Comment: Consult to Forklift Driver [CONS] Routine Reason for SW Consult: Patient resides at [facility]. Interested in medical POA paperwork. 02/08/17 15:31 Consult to Occupational Therapy [CONS] Routine Comment: Evaluate, develop and implement POC Reason for Consult: weakness Consult to Physical Therapy [CONS] Routine Comment: Evaluate, develop and implement POC Reason for Consult: weakness 02/08/17 19:02 Consult to Cardiology [CONS] Routine Comment: Consulting Provider: Cardiology Karina Reason for Consult: nstemi Call Completed: No Anticipated date of discharge: 02/12/17 - Patient Status Disposition: Transfer SNF Condition: Good Functional capacity at discharge: wheelchair bound Overall status at discharge: patient is progressing back to baseline - Discharge Instructions Instructions: Hydrocodone/Acetaminophen (By mouth), Alprazolam (By mouth), Levofloxacin (By mouth), Pneumonia (DC) Follow Up With: Brionna Campbell MD [Primary Care Provider] - - Diet and Activity Activity: increase activity as tolerated, resume usual activities as tolerated, wear oxygen at all times Diet: low fat, low cholesterol, low salt diet Hospital course: Ms. Arizmendi is a 71 year old female with past medical history of COPD, arthritis, dementia, GERD, hypertension, [id number], anxiety and depression. She presented to the ED with complaints of shortness of breath. Symptoms are worse with exertion. She also complained of nonproductive cough and subjective fever and chills. Patient was admitted for acute exacerbation of COPD and elevated troponin. She was tried on DuoNeb breathing treatment and empiric Levaquin. She was also on IV Solu-Medrol which is now been switched to prednisone. Cardiology has evaluated the patient for elevated troponin. Echocardiogram reveals LVEF 60-65% with normal RV function and mild diastolic dysfunction. Recommended stress test. Stress test is nondiagnostic for ischemia. COPD exacerbation was slowly improving. Patient is being discharged with Levaquin by mouth. Patient was counseled about smoking cessation. She was continued on all home medications. Patient did not have any other acute events or complications during her stay in the hospital. Patient has been explained about her condition and plan of care in detail. She understood and agreed. No unanswered questions. Patient is being discharged in stable condition. Time spent discussing smoking cessation with patient: 3 to 10 minutes - Time Spent with Patient Total time spent providing and/or coordinating discharge services: Greater than 30 minutes - Constitutional Vitals: Temp Pulse Resp BP Pulse Ox 97.4 F L 75 17 168/75 93 02/12/17 08:00 02/12/17 08:00 02/12/17 08:00 02/12/17 08:00 02/12/17 09:56 General appearance: Present: cooperative, A&O X 3, pleasant, no acute distress, answers questions appropriately - Head Head exam: Present: atraumatic - Eye Eye exam: Present: EOMI - ENT ENT exam: Present: mucous membranes moist - Respiratory Respiratory exam: Present: CTAB. Absent: rales, rhonchi, wheezes, tachypnea - Cardiovascular Cardiovascular exam: Present: RRR, +S1, +S2 - GI/Abdominal GI/Abdominal exam: Present: soft. Absent: distended, firm, guarding, tenderness - Extremities Exam Extremities exam: Present: radial pulses palpable and symmetrical. Absent: calf tenderness, cyanotic Additional comments: Bilateral below-knee amputation - Neurological Exam Neurological exam: Present: alert, oriented X3, no focal deficits. Absent: facial droop, speech deficit
--- NOTE | 2017-02-12 10:38 | Physician Discharge Referral ---
ExtendedCare Referral Info Provider in Charge after Transfer: PCP Institutional Level of Care: Skilled - Diagnosis (1) Acute exacerbation of chronic obstructive airways disease Priority: Primary Status: Acute (2) Elevated troponin Priority: Primary Status: Acute (3) Pneumonia Priority: Primary Status: Acute (4) Acute on chronic respiratory failure with hypoxia Priority: Primary Status: Acute (5) Tobacco abuse Priority: Secondary Status: Chronic (6) Chronic anxiety Priority: Secondary Status: Chronic Prognosis: Fair Aware of Diagnosis: Patient Aware of Prognosis: Patient - Transfer Medications Prescriptions: Ipratropium/Albuterol Neb [Duoneb] 3 ml IH Q6HR PRN #30 inhsol PRN Reason: Shortness Of Breath ALPRAZolam [Xanax 0.5 MG Tablet] 0.5 mg PO BID PRN #7 tablet PRN Reason: Anxiety Aspirin Enteric Coated [Aspirin EC] 81 mg PO DAILY #30 tablet. Atorvastatin [Lipitor] 40 mg PO HS #30 tablet Buspirone HCl [Buspar] 5 mg PO BID #30 tablet Gabapentin [Neurontin] 100 mg PO TID #20 capsule HYDROcodone/Acet 5/325 mg [[place] 5-325 mg] 1 tab PO Q6H PRN #7 tablet PRN Reason: Pain levoFLOXacin [Levaquin] 750 mg PO Q24H 5 Days #5 tablet Melatonin 3 mg PO DAILY #10 tablet Nicotine Patch [Nicoderm] 14 mg TD DAILY #30 patch.td24 predniSONE [PredniSONE] 20 mg PO DAILY #14 tablet traZODone [TraZODone] 50 mg PO HS #30 tablet Home Medications: Acetaminophen [Tylenol] 650 mg PO Q6HR PRN 04/22/16 [History] Carvedilol [Coreg] 25 mg PO BID 04/22/16 [History] Iron Aspgly,Ps/C/B12/FA/Ca/Suc [Ferrex 150 Forte Plus Capsule] 1 each PO DAILY 04/22/16 [History] Loratadine [Allergy Relief] 10 mg PO DAILY 04/22/16 [History] Cholecalciferol (Vitamin D3) [Vitamin D3] 2,000 unit PO DAILY 09/09/16 [History] Clopidogrel [Plavix] 75 mg PO DAILY 09/09/16 [History] Pantoprazole Sodium 40 mg PO DAILY 09/09/16 [History] Polyethylene Glycol 3350 [MiraLAX Powder Bulk 17.9 Oz] 17 gm PO DAILY 09/09/16 [ History] Amlodipine Besylate 2.5 mg PO DAILY 01/08/17 [History] Sennosides/Docusate Sodium [Senna Plus] 2 each PO BID 01/08/17 [History] Umeclidinium [place] [Incruse Ellipta] 62.5 mcg IH DAILY 01/08/17 [History] Albuterol Sulfate [Ventolin Hfa] 1 puff IH Q12H PRN 02/08/17 [History] Fluticasone/Vilanterol [Breo Ellipta 100-25 Mcg INH] 1 each IH DAILY 02/08/17 [ History] Losartan Potassium [Cozaar] 100 mg PO DAILY 02/08/17 [History] Metoclopramide HCl 5 mg PO ACHS 02/08/17 [History] Oxygen 2 l NS CONT 02/08/17 [History] Potassium Chloride [K-Tab ER] 20 meq PO DAILY 02/08/17 [History] Promethazine [Phenergan] 25 mg PO Q6H PRN 02/08/17 [History] Sertraline [Zoloft] 50 mg PO DAILY 02/08/17 [History] Timolol Maleate 0.5% 1 drop BOTH EYES BID 02/08/17 [History] ALPRAZolam [Xanax 0.5 MG Tablet] 0.5 mg PO BID PRN #7 tablet 02/12/17 [Rx] Aspirin Enteric Coated [Aspirin EC] 81 mg PO DAILY #30 tablet. 02/12/17 [Rx] Atorvastatin [Lipitor] 40 mg PO HS #30 tablet 02/12/17 [Rx] Buspirone HCl [Buspar] 5 mg PO BID #30 tablet 02/12/17 [Rx] Gabapentin [Neurontin] 100 mg PO TID #20 capsule 02/12/17 [Rx] HYDROcodone/Acet 5/325 mg [[place] 5-325 mg] 1 tab PO Q6H PRN #7 tablet 02/12/17 [ Rx] Ipratropium/Albuterol Neb [Duoneb] 3 ml IH Q6HR PRN #30 inhsol 02/12/17 [Rx] Melatonin 3 mg PO DAILY #10 tablet 02/12/17 [Rx] Nicotine Patch [Nicoderm] 14 mg TD DAILY #30 patch.td24 02/12/17 [Rx] levoFLOXacin [Levaquin] 750 mg PO Q24H 5 Days #5 tablet 02/12/17 [Rx] predniSONE [PredniSONE] 20 mg PO DAILY #14 tablet 02/12/17 [Rx] traZODone [TraZODone] 50 mg PO HS #30 tablet 02/12/17 [Rx] Allergies/Adverse Reactions: 3 Allergy/AdvReac Type Severity Reaction Status Date / Time nitroglycerin Allergy Hives Verified 02/08/17 10:09 vancomycin Allergy Rash Verified 01/08/17 20:21 - Respiratory Orders Smoking Cessation: Smoking cessation has been advised. For more information, call the [employer] Tobacco Quit Line at 4-545-SZOO-NOW. - Lab Orders Lab Orders: CBC - Ancillary Orders May use pressure relief devices daily prn - Advance Directives Code Status: Full Code - Mobility Orders Chair - Rehabiliation Orders Rehab Orders: Evaluation for Physical Therapy, Evaluation for Occupational Therapy - Treatments Skin tear care topically daily PRN per policy - Diet Orders Cardiac CERTIFICATION: I certify that the transfer of the above named patient to an Extended Care Facility is necessary for the continuing treatment of the diagnosis listed. The above information is true and accurate reflection of patient's current condition. Confidential - Redisclosure prohibited without a patient's written consent.
[2017-02-12 12:45] VITALS: BP 140/84
== END 2017-02-12 14:20 | DRG 193 ==
LOC: 2ANU → SUATTDRO 12:40
PROVIDERS: ADMIT Hospitalist; ATTEND Internal Medicine